=== PATIENT | female | born 1955 | race Native Hawaiian/Other Pacific Islander ===

== ENCOUNTER 2021-01-02 00:25 | Emergency (ER) | payer MEDICARE, MEDICAID ==
--- NOTE | 2021-01-02 01:16 | ERPHSYRPT ---
- History of Present Illness Time Seen by Provider: 01/02/21 00:45 Source: family, EMS Exam Limitations: clinical condition Patient Subjective Stated Complaint: EMS brought pt in for vomiting and altered mental status Triage Nursing Assessment: Pt arrived via EMS with altered mental status, vomiting, diarrhea and fever. Pt was treated earlier today at [facility] ER and released home. Pt vomited x1 for family this evening. Pt is snoring, not awake, not responding but will open her eyes to her name being called out. Pt's daughter in law states, "shes been this way off and on a few weeks but has progressively gotten worse". Pt on rm air at home arrived on 4L n/c. Physician History: 65 years old female with multiple medical problems including end-stage renal disease on dialysis 3 times a week, hypertension, hyperlipidemia, COPD, diabetes mellitus, stroke, atrial fibrillation on Eliquis, leukemia presented in the ER with chief complaint of altered mental status. Per [id number] patient has been having vomiting and diarrhea for the last 4 days and is weak fatigued and tired and confused acting then usual. She could not go to dialysis in the last 2 times. Patient was earlier seen at [facility] yesterday afternoon with broad work-up is done, patient was diagnosed with an uremic encephalopathy, enteritis and was discharged on Keflex Zofran and Flagyl with outpatient dialysis later today. Per family patient is sleeping and not waking up and on EMS arrival she had a fever of 100.8 and oxygen saturation around 88% currently she is on 3 L with sats around 94%. Patient is sleepy, arousable to verbal commands and is acting confused. History is limited. Allergies/Adverse Reactions: codeine Adverse Reaction (Verified 01/02/21 00:58) Home Medications: Albuterol Sulfate [Proair Digihaler] 2 puffs IH Q4H PRN PRN 01/02/21 [History] Dasatinib [Sprycel] 100 mg PO DAILY 01/02/21 [History] Docusate Sodium 100 mg [Colace 100 MG] 100 mg PO BID 01/02/21 [History] Ferric Citrate [Auryxia] 420 mg PO AC 01/02/21 [History] Folic Acid/Vitamin B Comp W-C [Nephrocaps Softgel] 1 cap PO DAILY 01/02/21 [History] Gabapentin 300 mg PO TID 01/02/21 [History] Guaifenesin [Mucinex] 600 mg PO BID PRN PRN 01/02/21 [History] Hydroxyzine HCl 25 mg PO QID PRN PRN 01/02/21 [History] Insulin Glargine [Lantus Insulin] 38 units SQ HS 01/02/21 [History] Insulin Lispro [Humalog] 8 units SQ AC 01/02/21 [History] Iron Polysaccharide Complex [Polysaccharide Iron] 150 mg PO DAILY 01/02/21 [History] Levothyroxine Sodium [Levothyroxine] 75 mcg PO DAILY 01/02/21 [History] Magnesium Hydroxide 30 ml [Milk of Magnesia 30 ml] 30 ml PO QID PRN PRN 01/02/21 [History] Promethazine HCl 25 mg [Phenergan 25 mg] 25 mg PO Q4H PRN PRN 01/02/21 [History] Umeclidinium Brm/Vilanterol Tr [Anoro Ellipta 62.5-25 Mcg INH] 1 inh IH DAILY 01/02/21 [History] Hx Tetanus, Diphtheria Vaccination/Date Given: Yes Hx Influenza Vaccination/Date Given: Yes Hx Pneumococcal Vaccination/Date Given: Yes Travel Risk - International Travel Have you traveled outside of the country in past 3 weeks: No - Coronavirus Screening Are you exhibiting any of the following symptoms?: Yes Symptoms: Fever, Vomiting/Diarrhea, Headaches/Body Aches/Fatigue Close contact with a COVID-19 positive Pt in past 14-21 Days: No - Review of Systems All Other Systems: Unable due to condition - Past Medical History Pertinent Past Medical History: Yes Neurological History: Stroke ENT History: No Pertinent History Cardiac History: Congestive Heart Failure, High Cholesterol, Hypertension Respiratory History: CHF, Pneumonia Endocrine Medical History: Diabetes Type II, Hypothyroidism Musculoskeletal History: No Pertinent History GI Medical History: GERD, Gallbladder Disease History: Renal Disease Psycho-Social History: Anxiety, Depression Female Reproductive Disorders: No Pertinent History - Past Surgical History Past Surgical History: Yes Neuro Surgical History: Brain Shunt Cardiac: No Pertinent History Respiratory: No Pertinent History Gastrointestinal: Appendectomy, Cholecystectomy, Other Genitourinary: Other Musculoskeletal: No Pertinent History Female Surgical History: No Pertinent History Other Surgical History: dialysis cath - Social History Smoking Status: Never smoker Exposure to second hand smoke: No Drug Use: none Patient Lives Alone: No - Female History Hx Now: No - Nursing Vital Signs Nursing Vital Signs: Initial Vital Signs Temperature 99.8 F 01/02/21 00:33 Pulse Rate 97 H 01/02/21 00:33 Respiratory Rate 24 01/02/21 00:33 Blood Pressure 161/83 01/02/21 00:33 O2 Sat by Pulse Oximetry 100 01/02/21 00:33 Pain Scale Pain Intensity 0 - Physical Exam General Appearance: no apparent distress, obese, other (Sleeping but arousable) Eye Exam: PERRL/EOMI, eyes nml inspection, scleral icterus Ears, Nose, Throat Exam: normal ENT inspection, TMs normal, pharynx normal Neck Exam: normal inspection, non-tender, supple Respiratory Exam: crackles/rales, wheezing, No chest tenderness Cardiovascular Exam: regular rate/rhythm, normal heart sounds Gastrointestinal/Abdomen Exam: soft, tenderness, other (Hypoactive bowel sounds), No distention (Generalized) Back Exam: normal inspection Extremity Exam: normal inspection, pelvis stable Neurologic Exam: confusion, No oriented x 3, No cooperative Skin Exam: normal color SpO2 Interpretation: O2 applied SpO2: 95 O2 Delivery: Nasal Cannula - Course EKG Interpreted by Me: RATE (99), Sinus Rhythm, NORMAL AXIS, NORMAL INTERVALS, Other (PVCs, nonspecific T wave changes) Ordered Tests: Active Orders 24 hr Category Date Time Status EKG-ER Only STAT Care 01/02/21 01:09 Active IV Insertion STAT Care 01/02/21 01:09 Active NPO (ED) STAT Care 01/02/21 01:09 Active CHEST 1 VIEW (PORTABLE) Stat Exams 01/02/21 01:09 Taken ABG [ARTERIAL BLOOD GASES] Stat Lab 01/02/21 01:42 Completed AMYLASE Stat Lab 01/02/21 01:39 Completed BLOOD CULTURE Stat Lab 01/02/21 01:39 Received CBC W DIFF Stat Lab 01/02/21 01:39 Completed CMP Stat Lab 01/02/21 01:39 Completed CULTURE,URINE Stat Lab 01/02/21 02:17 Received LIPASE Stat Lab 01/02/21 01:39 Completed Lactic Acid Stat Lab 01/02/21 01:35 Completed TROPONIN Q3H Lab 01/02/21 01:39 Received TROPONIN Q3H Lab 01/02/21 04:15 Ordered TROPONIN Q3H Lab 01/02/21 07:15 Ordered TROPONIN Q3H Lab 01/02/21 10:15 Ordered TROPONIN Q3H Lab 01/02/21 13:15 Ordered TSH [TSH, 3RD Generation] Stat Lab 01/02/21 02:19 Ordered UA W/RFX UR CULTURE Stat Lab 01/02/21 02:15 Received Respiratory Therapy Assessment DAILY RT 01/02/21 02:00 Active Medication Summary Generic Name Dose Route Start Last Admin Trade Name Freq PRN Reason Stop Dose Admin Azithromycin 500 mg in 250 mls @ 250 mls/hr 01/02/21 01:40 01/02/21 01:53 Zithromax 500 Mg/ 250 Ml Nacl Premix IV 01/02/21 02:39 250 mls/hr STAT STA 250 mls/hr Administration Discontinued Medications Generic Name Dose Route Start Last Admin Trade Name Freq PRN Reason Stop Dose Admin Albuterol/Ipratropium 3 ml 01/02/21 01:40 01/02/21 01:49 Duoneb 0.5-3 Mg/3 Ml Neb IH 01/02/21 01:41 3 ml STAT ONE Administration Albuterol/Ipratropium Confirm 01/02/21 01:48 Duoneb 0.5-3 Mg/3 Ml Neb Administered 01/02/21 01:49 Dose 3 ml IH .STK-MED ONE Ceftriaxone Sodium/Dextrose 1 g in 50 mls @ 100 mls/hr 01/02/21 01:40 01/02/21 01:53 Rocephin 1 Gm-D5w 50 Ml Bag IV 01/02/21 02:09 100 mls/hr STAT STA 100 mls/hr Administration Azithromycin Confirm 01/02/21 01:51 Zithromax 500 Mg/ 250 Ml Nacl Premix Administered 01/02/21 01:52 Dose 500 mg in 250 mls @ ud IV .STK-MED ONE Ceftriaxone Sodium/Dextrose Confirm 01/02/21 01:51 Rocephin 1 Gm-D5w 50 Ml Bag Administered 01/02/21 01:52 Dose 1 g in 50 mls @ ud IV .STK-MED ONE Lab/Rad Data: Laboratory Result Diagrams 01/02/21 01:39 01/02/21 01:39 Laboratory Results 01/02/21 01/02/21 01/02/21 Range/Units 01:42 01:39 01:39 WBC 10.5 (4.0-10.5) K/mm3 RBC 3.24 L (4.1-5.4) M/mm3 Hgb 10.1 L (12.0-16.0) gm/dl Hct 32.5 L (35-47) % MCV 100.3 H (78-100) fl MCH 31.2 (26-32) pg MCHC 31.1 L (32-36) g/dl RDW 16.1 H (11.5-14.0) % Plt Count 230 (150-450) K/mm3 MPV 9.1 (7.5-11.0) fl Gran % 88.4 H (36.0-66.0) % Eos # (Auto) 0.06 (0-0.5) Absolute Lymphs (auto) 0.44 L (1.0-4.6) Absolute Monos (auto) 0.66 (0.0-1.3) Lymphocytes % 4.2 L (24.0-44.0) % Monocytes % 6.3 (0.0-12.0) % Eosinophils % 0.6 (0.00-5.0) % Basophils % 0.5 (0.0-0.4) % Absolute Granulocytes 9.27 H (1.4-6.9) Basophils # 0.05 (0-0.4) Puncture Site RIGHT BRACHIAL pCO2 49 H (35-45) mmHg pO2 103 H (75-100) mmHg Base Excess 6.1 H (-2.0-2.0) O2 Saturation 94.4 (94-100) g/dF ABG pH 7.42 (7.35-7.45) ABG HCO3 31.8 H* (22-28) ABG O2 Sat (Measured) 97.8 (95-100) % Darrian Test NOT APPLICABLE A-a Gradient 92 a/A Ratio 0.53 Hemoglobin 10.7 Carboxyhemoglobin 2.7 (0.0-6.9) % THgb Methemoglobin 0.9 L (1.4-1.5) % Temperature 37.0 C POC O2 Flow Rate 36 % Sodium 139 (137-145) mmol/L Potassium 6.1 H* 5.8 H (3.5-5.1) mmol/L Chloride 95 L (98-107) mmol/L Carbon Dioxide 26 (22-30) mmol/L Anion Gap 23.1 H (5-15) MEQ/L BUN 95 H (7-17) mg/dL Creatinine 13.64 H (0.52-1.04) mg/dL Estimated GFR 2.9 ML/MIN Glucose 249 H (74-106) mg/dL Lactic Acid (0.4-2.0) Calcium 9.7 (8.4-10.2) mg/dL Total Bilirubin 0.50 (0.2-1.3) mg/dL AST 17 (14-36) U/L ALT 21 (0-35) U/L Alkaline Phosphatase 176 H (38-126) U/L Serum Total Protein 7.2 (6.3-8.2) g/dL Albumin 3.7 (3.5-5.0) g/dL Amylase 49 (30-110) U/L Lipase 34 (23-300) U/L 01/02/ Range/Units 01:35 WBC (4.0-10.5) K/mm3 RBC (4.1-5.4) M/mm3 Hgb (12.0-16.0) gm/dl Hct (35-47) % MCV (78-100) fl MCH (26-32) pg MCHC (32-36) g/dl RDW (11.5-14.0) % Plt Count (150-450) K/mm3 MPV (7.5-11.0) fl Gran % (36.0-66.0) % Eos # (Auto) (0-0.5) Absolute Lymphs (auto) (1.0-4.6) Absolute Monos (auto) (0.0-1.3) Lymphocytes % (24.0-44.0) % Monocytes % (0.0-12.0) % Eosinophils % (0.00-5.0) % Basophils % (0.0-0.4) % Absolute Granulocytes (1.4-6.9) Basophils # (0-0.4) Puncture Site pCO2 (35-45) mmHg pO2 (75-100) mmHg Base Excess (-2.0-2.0) O2 Saturation (94-100) g/dF ABG pH (7.35-7.45) ABG HCO3 (22-28) ABG O2 Sat (Measured) (95-100) % Darrian Test A-a Gradient a/A Ratio Hemoglobin Carboxyhemoglobin (0.0-6.9) % THgb Methemoglobin (1.4-1.5) % Temperature C POC O2 Flow Rate % Sodium (137-145) mmol/L Potassium (3.5-5.1) mmol/L Chloride (98-107) mmol/L Carbon Dioxide (22-30) mmol/L Anion Gap (5-15) MEQ/L BUN (7-17) mg/dL Creatinine (0.52-1.04) mg/dL Estimated GFR ML/MIN Glucose (74-106) mg/dL Lactic Acid 1.1 (0.4-2.0) Calcium (8.4-10.2) mg/dL Total Bilirubin (0.2-1.3) mg/dL AST (14-36) U/L ALT (0-35) U/L Alkaline Phosphatase (38-126) U/L Serum Total Protein (6.3-8.2) g/dL Albumin (3.5-5.0) g/dL Amylase (30-110) U/L Lipase (23-300) U/L - Progress Progress: unchanged Progress Note: 01/02/21 02:22 65 years old with multiple medical problems is evaluated in the ER for worsening confusion and hypoxia. Patient is on 3 L and maintaining oxygen saturation around 95%. She is sleepy but arousable. Temperature here is 99.8, chest x-ray showed congestion questionable airspace disease bilaterally, given a dose of Rocephin and Zithromax. She has normal white count and lactate but her renal functions BUN of 95, creatinine of 13.6. Potassium is 5.8. ABG did not show acidemia. I believe patient has uremic encephalopathy. She did not vomit or diarrhea while in here. She had a CT head and abdomen pelvis done at [facility] yesterday afternoon, I have not repeated them. I believe patient's main issue is uremic encephalopathy needs dialysis. No nephrology services available here, discussed with Dr. Eubanks at [facility] and patient is accepted for transfer. Plan discussed with family who understand and agree with it. Discussed with Dr.: Other () Will see patient in: ED Counseled pt/family regarding: lab results, diagnosis, rad results - Departure Departure Disposition: Transfer Clinical Impression: Uremic encephalopathy, Enteritis Respiratory failure Qualifiers: Chronicity: acute Respiratory failure complication: hypoxia Qualified Code(s): J96.01 - Acute respiratory failure with hypoxia Condition: Stable Critical Care Time: Yes Critical Care Time(excluding separately billable procedures): Critical 30-74 mins Referrals: Provider,Unknown [Primary Care Provider] -
[2021-01-02 01:43] LABS: Absolute Neutrophil Ct (ANC) 9.27 (1.4-6.9); BASOPHIL % 0.5 % (0.0-0.4); Basophil (Absolute #) 0.05 (0-0.4); Eosinophil % 0.6 % (0.00-5.0); Eosinophil (Absolute #) 0.06 (0-0.5); Hematocrit 32.5 % (35-47); Hemoglobin 10.1 gm/dl (12.0-16.0); Lymphocyte (Absolute #) 0.44 (1.0-4.6); Lymphocytes % 4.2 % (24.0-44.0); Mean Cell Volume 100.3 fl (78-100); Mean Corpuscular Hemoglobin 31.2 pg (26-32); Mean Corpuscular Hgb Concent. 31.1 g/dl (32-36); Mean Platelet Volume 9.1 fl (7.5-11.0); Monocyte (Absolute #) 0.66 (0.0-1.3); Monocytes % 6.3 % (0.0-12.0); Neutrophil % 88.4 % (36.0-66.0); Platelet Count 230 K/mm3 (150-450); Red Blood Count 3.24 M/mm3 (4.1-5.4); Red Cell Distribution Width 16.1 % (11.5-14.0); White Blood Count 10.5 K/mm3 (4.0-10.5)
[2021-01-02 01:44] LABS: A-aADO2 92; ABG HEMOGLOBIN 10.7; ARTERIAL BLD GAS O2 SATURATION 97.8 % (95-100); ARTERIAL BLOOD GAS BASE EXCESS 6.1 (-2.0-2.0); ARTERIAL BLOOD GAS FIO2 36 %; ARTERIAL BLOOD GAS PCO2 49 mmHg (35-45); ARTERIAL BLOOD GAS PO2 103 mmHg (75-100); ARTERIAL BLOOD GAS pH 7.42 (7.35-7.45); CARBOXYHEMOGLOBIN 2.7 % THgb (0.0-6.9); HCO3- 31.8 (22-28); HGB O2 SAT 94.4 g/dF (94-100); Methhemoglobin 0.9 % (1.4-1.5)
[2021-01-02 01:45] LABS: ABG POTASSIUM 6.1 (3.5-5.1); ABG SITE RIGHT BRACHIAL
[2021-01-02] MEDS ORDERED: DUONEB 0.5-3 MG/3 ml Neb IH ONE (01:48)
[2021-01-02] MEDS: DUONEB 0.5-3 MG/3 ml Neb IH ONE (01:49)
[2021-01-02] MEDS ORDERED: ROCEPHIN 1 Gm-D5w 50 ml Bag** 1 G/50 ML IVPB IV ONE (01:51)
[2021-01-02] MEDS ORDERED: Zithromax 500 MG/ 250 ML NaCl Premix 500 MG/250 ML IVPB IV ONE (01:51)
[2021-01-02] MEDS: ROCEPHIN 1 Gm-D5w 50 ml Bag** 1 G/50 ML IVPB IV STA (01:53)
[2021-01-02] MEDS: Zithromax 500 MG/ 250 ML NaCl Premix 500 MG/250 ML IVPB IV STA (01:53)
[2021-01-02 01:57] LABS: ALBUMIN 3.7 g/dL (3.5-5.0); ANION GAP 23.1 MEQ/L (5-15); BILIRUBIN,TOTAL 0.5 mg/dL (0.2-1.3); Calcium 9.7 mg/dL (8.4-10.2); Potassium 5.8 mmol/L (3.5-5.1); Total Protein 7.2 g/dL (6.3-8.2)
[2021-01-02 02:03] VITALS: BP 129/81; PULSE 93
[2021-01-02 02:03] LABS: Creatinine 1 13.64 mg/dL (0.52-1.04); EST GLOMERULAR FILTRATION RATE 2.9 ML/MIN
[2021-01-02 02:19] VITALS: O2SAT 95
[2021-01-02 02:24] LABS: Appearance CLOUDY (CLEAR); Leukocyte Esterase SMALL (NEGATIVE); Nitrite NEGATIVE (NEGATIVE); Specific Gravity 1.017 (1.005-1.025)
[2021-01-02 02:25] LABS: Bacteria RARE /HPF (NEGATIVE); Bilirubin NEGATIVE (NEGATIVE); Blood SMALL Ery/ul (0-5); Epithelial Cells RARE /HPF (FEW); Glucose 150 mg/dL (NEGATIVE); Ketones NEGATIVE (NEGATIVE); Mucus SLIGHT /HPF (NEGATIVE); Non-Squamous Epithelial Cells RARE /HPF (FEW); Protein,Urine Dip >=500 (Negative); Urobilinogen NEGATIVE mg/dL (0-1); WBC 26-50 /HPF (0-5)
--- NOTE | 2021-01-02 08:49 | XRAY ---
Indication: Acute mental status change. Comparison: None Portable chest underinflated accentuating cardiopulmonary structures with borderline cardiomegaly. Query mild left base infiltrate versus atelectasis. Bony thorax intact with mild osteopenia and degenerative changes.
== END 2021-01-02 02:45 | disposition short-term general hospital (02) ==
LOC: ED 00:25
DX: K52.9 Noninfective gastroenteritis and colitis, unspecified (principal); J96.01 Acute respiratory failure with hypoxia; R41.82 Altered mental status, unspecified; R11.10 Vomiting, unspecified; I12.0 Hypertensive chronic kidney disease with stage 5 chronic kidney disease or end stage renal disease; N18.6 End stage renal disease; Z99.2 Dependence on renal dialysis; J44.9 Chronic obstructive pulmonary disease, unspecified; E11.9 Type 2 diabetes mellitus without complications; I48.91 Unspecified atrial fibrillation; Z86.73 Personal history of transient ischemic attack (TIA), and cerebral infarction without residual deficits; Z79.01 Long term (current) use of anticoagulants; Z79.899 Other long term (current) drug therapy; E03.9 Hypothyroidism, unspecified; E78.00 Pure hypercholesterolemia, unspecified; K21.9 Gastro-esophageal reflux disease without esophagitis
CPT/HCPCS: 36000; 36415; 36600; 51702; 71045; 80053; 81001; 82150; 82375; 82803; 83605; 83690; 84443; 84484; 85025; 87040; 87086; 93005; 94640; 96365; 96368; 99285; 99291; J0456; J0696; A9270-GY